=== PATIENT | female | born 1950 | race Two or more races ===

== ENCOUNTER 2025-02-22 14:54 | Inpatient (IN) | payer OTHER ==
[~2025-02-22] VITALS: Ht 162.6 cm; Wt 76.3 kg
[2025-02-22] VITALS (8 sets, daily range): BP systolic 149–192; BP diastolic 76–96; PULSE 42–89; RESP 14–16; TEMP 97.9; O2SAT 93–100
--- NOTE | 2025-02-22 15:09 | ED.PDOC ---
History of Present Illness HPI Comments 74-year-old female brought in by EMS presents with a chief complaint of symptomatic bradycardia. Patient is experiencing dizziness, weakness, and bradycardia. Patient is not on Beta Blockers. Patient was at the clinic around the corner and her HR was 42 with a BP of 190/101. Patients blood sugar was 62. Patients EKG shows a complete heart block. 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 History: Denies all WATER PUMP INSTALLER Hx Family History Family History: Reviewed,noncontributory to illness Social History Smoker: Non-Smoker Alcohol: Denies ETOH Use Drugs: Denies Drug Use Lives In: Home Constitutional: reports: weakness; denies: chills, diaphoresis, fatigue, fever, malaise, sweats, others EENTM: denies: blurred vision, double vision, ear bleeding, ear discharge, ear drainage, ear pain, ear ringing, eye pain, eye redness, hearing loss, mouth pain, mouth swelling, nasal discharge, nose bleeding, nose congestion, nose pain, photophobia, tearing, throat pain, throat swelling, voice changes, others Respiratory: reports: SOB at rest; denies: cough, hemoptysis, orthopnea, shortness of breath, SOB with excertion, stridor, wheezing, others Cardiovascular: reports: dizzy spells; denies: chest pain, diaphoresis, Dyspnea on exertion, edema, irregular heart beat, left arm pain, lightheadedness, palpitations, PND, syncope, others Gastrointestinal: denies: abdomen distended, abdominal pain, blood streaked bowels, constipated, diarrhea, dysphagia, difficulty swallowing, hematemesis, melena, nausea, poor appetite, poor fluid intake, rectal bleeding, rectal pain, vomiting, others Genitourinary: denies: abnormal vagina bleeding, burning, dyspareunia, dysuria, flank pain, frequency, hematuria, incontinence, pain, , vagina discha rge, urgency, others Neurological: denies: dizziness, fainting, headache, left sided numbness, left sided weakness, numbness, paresthesia, pre-existing deficit, right sided numbness, right sided weakness, seizure, speech problems, tingling, tremors, weakness, others Musculoskeletal: denies: back pain, gout, joint pain, joint swelling, muscle pain, muscle stiffness, neck pain, others Integumetry: denies: bruises, change in color, change in hair/nails, dryness, laceration, lesions, lumps, rash, wounds, others Allergic/Immunocompromised: denies: Difficulty Healing, Frequent Infections, Hives, Itching, others Hematologic/Lymphatic: denies: anemia, blood clots, easy bleeding, easy bruising, swollen glands, others Endocrine: denies: excessive hunger, excessive sweating, excessive thirst, excessive urination, flushing, intolerance to cold, intolerance to heat, unexplained weight gain, unexplained weight loss, others Psychiatric: denies: anxiety, bipolar disorder, depression, hopeless, panic disorder, schizophrenia, sleepless, suicidal, others All Other Systems: Reviewed and Negative Physical Exam General Appearance: Moderate Distress HEENT: Normal ENT Inspection, Pharynx Normal, TMs Normal Neck: Full Range of Motion, Non-Tender, Normal, Normal Inspection Respiratory: Chest Non-Tender, Lungs Clear, No Accessory Muscle Use, No Respiratory Distress, Normal Breath Sounds Cardiovascular: Bradycardia, No Edema, No JVD, No Murmur, No Gallop Breast Exam: Deferred Gastrointestinal: No Organomegaly, Non Tender, No Pulsatile Mass, Normal Bowel Sounds, Soft Genitalia: Deferred Pelvic: Deferred Rectal: Deferred Extremities: No calf tenderness, Normal capillary refill, No pedal edema Musculoskeletal : Apperance: Normal Neurologic: Alert, email producer II-XII nml as Tested, Motor Weakness, Normal Affect, Normal Mood, No Sensory Deficits Cerebellar Function: Normal Reflexes: Normal Skin: Dry, Normal Color, Warm Lymphatic: No Adenopathy Was a procedure done? Was a procedure done?: No EKG EKG : Pulse Rate (adult): 46 Allred: Normal Block: 3 ST: Nonsp (Complete heart block) Differential Dx Considerations may include: Generalized weakness, electrolyte imbalance, complete heart block, VA X-Ray, Labs, Meds, VS Vital Signs Date Time Temp Pulse Resp B/P (MAP) Pulse Ox O2 Delivery O2 Flow Rate FiO2 02/22/25 16:09 46 02/22/25 15:17 42 16 100 Room Air* 0 21 02/22/25 15:17 98.2 42 16 175/ (115) 100 98.2 02/22/25 15:17 98.2 42 16 175/86 (115) 100 98.2 02/22/25 15:00 47 Lab Test 02/22/25 15:37 Range/Units White Blood Count 7.3 4.4-10.8 10^3/uL Red Blood Count 4.59 4.0-5.20 10^6/uL Hemoglobin 13.8 12.2-16.2 g/dL Hematocrit 40.7 36.0-46.0 % Mean Corpuscular Volume 88.7 80.0-100.0 fL Mean Corpuscular Hemoglobin 30.0 28.0-32.0 pg Mean Corpuscular Hemoglobin Concent 33.9 32.0-36.0 g/dL Red Cell Distribution Width 12.8 11.8-14.3 % Platelet Count 230 140-450 10^3/uL Mean Platelet Volume 9.1 6.9-10.8 fL Neutrophils (%) (Auto) 44.7 37.0-80.0 % Lymphocytes (%) (Auto) 44.7 10.0-50.0 % Monocytes (%) (Auto) 8.3 0.0-12.0 % Eosinophils (%) (Auto) 1.4 0.0-7.0 % Basophils (%) (Auto) 0.9 0.0-2.0 % Neutrophils # (Auto) 3.3 1.6-8.6 10 ^3/uL Lymphocytes # (Auto) 3.3 0.4-5.4 10 ^3/uL Monocytes # (Auto) 0.6 0-1.3 10 ^3/uL Eosinophils # (Auto) 0.1 0-0.8 10 ^3/uL Basophils # (Auto) 0.1 0-0.2 10 ^3/uL Nucleated Red Blood Cells 0.0 % Prothrombin Time 11.3 9.3-11.8 sec Prothrombin Time INR 1.07 0.9-1.15 Activated Partial Thromboplast Time 25.1 24.5-34.5 SEC Sodium Level 144 136-145 mmol/L Potassium Level 3.6 3.5-5.1 mmol/L Chloride Level 110 H 98-107 mmol/L Carbon Dioxide Level 25 20-31 mmol/L Anion Gap 9 5-15 Blood Urea Nitrogen 13 9-23 mg/dL Creatinine 0.93 0.550-1.02 mg/dL Glomerular Filtration Rate Calc 65 >90 mL/min BUN/Creatinine Ratio 14.0 10.0-20.0 Serum Glucose 118 H 74-106 mg/dL Calcium Level 10.1 8.7-10.4 mg/dL Magnesium Level 2.2 1.6-2.6 mg/dL Troponin I High Sensitivity 5 </=34 ng/L B-Type Natriuretic Peptide 57.53 0-100 pg/mL Thyroid Stimulating Hormone (TSH) 2.48 0.55-4.78 uIU/mL IV Hep-Lock was established. After seemed to EKG we did send it to Dr. Su who is the onion farmer on-call We are going to keep the patient NPO Gabby Caal HAUL DRIVER came down and did the patient's history and physical. At this time, the patient understands and agrees with the management. We did repeat another EKG which indicates again a complete heart block The BNP is within normal range The CBC and chemistry panel are within normal range The patient's troponin level is negative At this time, the patient will be taken to the laborer petroleum refinery for the new pacemaker The chest x-ray is negative Images Reviewed?: Images reviewed and evaluated by me Time of 1ST Reevaluation: 15:28 Reevaluation 1ST: Unchanged Patient Education/Counseling: Diagnosis, Treatment, Prognosis Family Education/Counseling: No Family Present Departure 1 Departure Time of Disposition: 16:41 Impression: Primary Impression: Complete heart block Additional Impression: Dizziness Disposition: 09 ADMITTED INPATIENT Admit to: ICU Condition: Fair Critical Care Note Critical Care Time?: Yes (55 min-critical care time only) Stability Stability form required: Yes Unstable for transfer: ICU, CCU, PCU, SLAVA (Intensive VS monitoring), ED Physician Assesment (Clinical assesment) Heart Score Heart Score: Heart Score Response (Comments) Value History Highly Suspicious 2 EKG Repolarization Disturb 1 Age >65 2 Risk Factors >3 or Hx ASHD 2 Troponin Normal limit 0 Total 7 I personally scribed for CAMILA NEGRETE MD ([email or web address]) on 02/22/25 at 15:09. Electronically submitted by Bienvenido Sharma ([email or web address]). CAMILA NEGRETE MD February 22, 2025 15:09
--- NOTE | 2025-02-22 15:54 | DVH ---
INDICATION: weakness and sob TECHNIQUE: Frontal view of the chest. COMPARISON: None FINDINGS: . The heart and mediastinal contours are grossly unremarkable. There is no evidence of pleural disea se. The lungs are clear. The bony structures of the chest are intact without fracture. IMPRESSION: 1. No evidence of acute disease.
--- NOTE | 2025-02-22 15:58 | DVHINCON2 ---
Date Seen: February 22, 2025 Referring Physician MD Denisa Reason for Consultation Complete heart block History of Present Illness This is a 74-year-old female who presented to the emergency room via EMS with a chief complaint of generalized weakness since this morning. The patient complains of progressive generalized weakness prompting her to seek further medical attention and attending a local urgent care clinic and found to be bradycardic with subsequent EMS transportation to the emergency room. EN route to the hospital she was found with a blood sugar level of 62 mg/dL for which she was medicated with dextrose as well as a reported HR in the 40sbpm. Upon arrival to the emergency room she underwent a 12 lead electrocardiogram revealing a complete atrioventricular block. She presented with a home med list excluding any AV pj blocking agents. She also presented with a blood pressure log revealing a heart rate in the 40s since yesterday afternoon. significant medical history includes hypertension on lisinopril, osteoporosis with a history of multiple fractures, asthma, bilateral cataracts, and chronic lower back pain. Past Medical History Past medical history reviewed. No other significant than mentioned above. Past Surgical History C-sections x2 Hysterectomy Cholecystectomy Right foot hammertoe x4 Family History Family history reviewed. Social History Denies the use of illicit drugs, alcohol, or tobacco use. Home Meds Home medications reviewed. Review of Systems Constitutional: generalized weakness Ears, Nose, & Throat: No symptom reported Eyes: No symptom reported Neurological: No symptoms reported Pulmonary/Respiratory: No symptom reported Cardiovascular: No symptom reported Gastrointestinal: No symptom reported Genitourinary: No symptom reported Musculoskeletal: No symptom reported Skin: No symptom reported Psychiatric: No symptom reported Endocrine: No symptom reported Hemotologic/Lymphatic: No symptom reported Vital Signs Vital Signs Date Time Temp Pulse Resp B/P (MAP) Pulse Ox O2 Delivery O2 Flow Rate FiO2 02/22/25 15:17 42 16 100 Room Air* 0 21 02/22/25 15:17 98.2 175/86 (115) 98.2 Physical Exam General Appearance: Cooperative. Well developed. Well nourished. In no acute distress Head Exam: Normal inspection Neck Exam: Normal inspection. Non-tender. Normal alignment Pulmonary/Respiratory: Chest non-tender. Clear bilateral breath sounds Cardiovascular/Chest: Regular rate and rhythm. S1, S2. Complete heart block. No murmurs. No JVD. Peripheral Pulses: 2+ Radial (R). 2+ Radial (L). 2+ Pedal (R). 2+ Pedal (L) Abdominal Exam: Normal bowel sounds. Soft. Nontender. No hepatospenomegaly. No masses Ankle Exam: Negative ankle edema Lower extremities: Negative lower extremity edema Neuro/Mental Status: A&O x4. Coherent Thoughts/Psych: Normal thought pattern. Appropriate mood and affect. Good judgement and insight Appearance: In no acute distress Skin Exam: Normal inspection. Normal color. Warm. Dry Assessment Complete heart block Rule out structural heart disease Acute hypoglycemia Hypertension Osteoporosis Asthma Plan/Recommendation (Dr. Su) Case discussed with Dr. Su. Scheduled for emergent permanent pacemaker implantation first availability. All risks and benefits of the procedure were discussed with the patient who agrees to proceed with intervention. All questions answered. We will also obtain a transthoracic echocardiogram to rule out structural heart disease. Blood work pending at this time. Monitor ECG changes closely and notify. Rest of plan per clinical course. Thank you for allowing us to participate in this patient's care. Please call if you have any questions or concerns. Critical care time: 45 min. This medical document was created using an electronic medical record system with voice recognition software and computerized dictation system. Although this document has been carefully reviewed, there might still be some phonetic and typographical errors. Occasional wrong-word or ``sound-alike substitutions may have occurred due to the inherent limitations of voice recognition software. These areas are purely typographical due to imperfections of the software programs and do not reflect any compromise in the patient's medical care. Please read the chart carefully and recognize, using context, where these substitutions have occurred. Plan discussed with: Patient, Other NYHA Physical activity limitations: NA Date of Service: February 22, 2025 Billing Provider: LAURIE PICHARDO Cardiology Common Codes: [id number] CARE 30-74 MIN LAURIE PICHARDO February 22, 2025 15:58
[2025-02-22 16:09] LABS: Basophils # (auto) 0.1 10 ^3/uL (0-0.2); Basophils % (auto) 0.9 % (0.0-2.0); Eosinophils # (auto) 0.1 10 ^3/uL (0-0.8); Eosinophils % (auto) 1.4 % (0.0-7.0); Hematocrit 40.7 % (36.0-46.0); Hemoglobin 13.8 g/dL (12.2-16.2); Lymphocytes # (auto) 3.3 10 ^3/uL (0.4-5.4); Lymphocytes % (auto) 44.7 % (10.0-50.0); Mean Corpuscular Hgb Conc. 33.9 g/dL (32.0-36.0); Mean Corpuscular Volume 88.7 fL (80.0-100.0); Monocytes # (auto) 0.6 10 ^3/uL (0-1.3); Monocytes % (auto) 8.3 % (0.0-12.0); Neutrophils # (auto) 3.3 10 ^3/uL (1.6-8.6); Neutrophils % (auto) 44.7 % (37.0-80.0); Platelet Count (auto) 230 10^3/uL (140-450); Red Blood Cells 4.59 10^6/uL (4.0-5.20); Red Cell Distribution Width 12.8 % (11.8-14.3); White Blood Cell 7.3 10^3/uL (4.4-10.8)
[2025-02-22 16:20] LABS: Anion Gap 9 (5-15); Carbon Dioxide 25 mmol/L (20-31); Potassium 3.6 mmol/L (3.5-5.1); Sodium 144 mmol/L (136-145)
[2025-02-22 16:21] LABS: Calcium 10.1 mg/dL (8.7-10.4)
[2025-02-22 16:22] LABS: Chloride 110 mmol/L (98-107)
[2025-02-22 16:26] LABS: Blood Urea Nitrogen 13 mg/dL (9-23); Magnesium 2.2 mg/dL (1.6-2.6)
[2025-02-22 16:29] LABS: Glucose 118 mg/dL (74-106)
[2025-02-22 16:30] LABS: INR 1.07 (0.9-1.15); Partial Thromboplastin Time 25.1 SEC (24.5-34.5); Prothrombin Time 11.3 sec (9.3-11.8)
--- NOTE | 2025-02-22 18:59 | ECG ---
[facility] Test Date: 2025-02-22 Test Time: 15:00:37 Pat Name: ELSA ASIF Department: ED Room: 0248T Gender: F Hat And Cap Opener: elmer : 1950 Requested By: CAMILA NEGRETE Order Number: [id number] Reading MD: Jamie Su Measurements Intervals [place] Rate: 47 P: 0 OR: 0 QRS: -61 QRSD: 114 T: 60 QT: 553 QTc: 489 Interpretive Statements AV block, complete (third degree) Incomplete right bundle branch block Inferior infarct, old Electronically Signed On 02-26-2025 22:06:09 PDT by Jamie Su Please click the below link to view image of tracing.
--- NOTE | 2025-02-22 18:59 | ECG ---
[facility] Test Date: 2025-02-22 Test Time: 16:09:02 Pat Name: ELSA ASIF Department: ED Room: 0248T Gender: F Direct Sales Representative: elmer : 1950 Requested By: CAMILA NEGRETE Order Number: [id number] Reading MD: Jamie Su Measurements Intervals [place] Rate: 46 P: 81 WI: 0 QRS: -65 QRSD: 120 T: 64 QT: 510 QTc: 447 Interpretive Statements AV block, complete (third degree) Ventricular premature complex IVCD, consider atypical RBBB Inferior infarct, old Electronically Signed On 02-26-2025 22:06:30 PDT by Jamie Su Please click the below link to view image of tracing.
[2025-02-22] MEDS: fentaNYL CITRATE 100 MCG/2 ML VL ONE ×2 (19:05→20:06)
[2025-02-22] MEDS: VANCOMYCIN HCL 1000 MG VL ONE (19:05)
[2025-02-22] MEDS: LIDOCAINE 2%HCL (LOCAL ANESTH.) INJ 20ML MDV ONE ×2 (19:06→19:39)
[2025-02-22] MEDS: MIDAZOLAM HCL 2MG/2ML 2ml VIAL (1mg/ml) ONE ×2 (19:06→20:06)
[2025-02-22] MEDS: VANCOMYCIN 1GM/200ML PM 200 ML IV ONE (19:06)
--- NOTE | 2025-02-22 21:31 | DVHOP2 ---
Operative Report - 2 Report Details Date: 02/22/25 Preop Diagnosis: Complete heart block Postop Diagnosis: Successful placement of permanent pacemaker Surgeon: Cody Su MD Anesthesiologist: Conscious sedation Anesthesia: Mac, Local Consent: The patient was informed of the risks and benefits of the procedure. These include but are not limited to complications of anesthesia, postoperative infection, incomplete relief of symptoms, recurrence of symptoms, damage to blood vessels, nerves and tendons, deep venous thrombosis, pulmonary embolism and possible need for repeat surgery in the future. Complications: No complications Estimated Blood Loss: 5 cc Indications for Surgery: Complete heart block Name of Procedure Performed Permanent pacemaker implantation Procedure Details Procedure Details: Prior full informed consent obtained the patient was prepped and draped in usual fashion incision over the left pectoral area after a venogram performed. Dissection planes with electrocautery and blunt dissection was performed of the left pectoral muscle and a pocket formed under the pectoral fascia. We then accessed the subclavian vein with a cook needle and place taken guidewires. Peel-away sheath was then placed. Active fixation electrodes into the right ventricular apex and right atrium were placed under fluoroscopic guidance. Adequate capture and sensitivity thresholds were obtained. These were sutured with 0 Ethibond. The pocket was flushed with antibiotic solution and a Ray-Nathalie with antibiotic solution was placed during the insertion of the leads. The Ray-Nathalie was then removed. The leads were connected to a generator after the pocket was flushed with antibiotic solution and the pocket was closed with 4.0 Vicryl. We closed the skin with 4-0 Monocryl and Dermabond. Patient tolerated the procedure well there were no complications. The right ventricular lead is a Medtronic model number 5076-5 two. 52 cm in length. Serial number [id number] The atrial lead is a model number 5076-45, serial number [id number], ALSO BY [employer]. THE R-WAVE WAS 2 MV WITH A PACING IMPEDANCE OF 608 OHMS. THE THRESHOLD WAS 1 VOLT AT 0.4 MILLISECONDS THE RIGHT VENTRICULAR R-WAVE WAS AT FOUR. PACING IMPEDANCE OF 567 AT 0.5 VOLTS AND 0.4 MILLISECONDS. THE PACEMAKER IMPLANTED WAS A [employer] MODEL NUMBER [id number] SERIAL NUMBER [id number] G pacemaker settings were as follows. Pacing mode is DDD. Mode switch on. Lower rate 60 upper rate 130. Tracking rate 130. , atrial amplitude at 3.5 volts with a pulse width of 0.4 milliseconds a sensitivity of 0.3 mV bipolar configuration in both sensing and pacing. Parameters for the right ventricle are as follows: Amplitude 3.5 volts with a pulse width of 0.4 milliseconds, a sensitivity of 0.9 mV, bipolar configuration in both sensing and pacing. A chest x-ray and an EKG were ordered for evaluation of placements. patient tolerated the procedure well there were no complications. Impression: Successful placement of dual-chamber permanent pacemaker for complete AV block. Recommendations: Risk factor modification. Checking thresholds within 24 hours. Condition Good Disposition Still a Patient Date of Service: February 22, 2025 Billing Provider: CODY SU Sr., MD Cardiology Common Codes: [id number] INP/OBS CARE (High) Card. Pacer Implants/Gen [id number] DUAL LEAD PACER CODY SU Sr., MD February 22, 2025 21:31
--- NOTE | 2025-02-22 21:53 | DVH ---
CHEST RADIOGRAPH Indication: S/P PACEMAKER Technique: Single frontal view of the chest was obtained Comparison: XY CHEST PORTABLE on DOS: 02/22/25 FINDINGS: Lines and Tubes: Dual-chamber pacemaker in place with pulse generator over the left chest Lungs: No focal consolidation. Pleura: No effusion. No pneumothorax. Cardiomediastinal contours: Unremarkable Bones: No acute osseous abnormality. IMPRESSION: 1. Dual-chamber pacemaker in place with pulse generator over the left chest. 2. No pneumothorax on the left. 3. No acute cardiopulmonary disease.
[2025-02-22] MEDS: HYDROmorphone HCL 2 MG/ML VL/or syr IV ONE (22:33)
[2025-02-23] VITALS (7 sets, daily range): BP systolic 119–156; BP diastolic 75–89; PULSE 54–90; RESP 16–19; TEMP 97.7–98.4; O2SAT 96–100
[2025-02-23] MEDS ORDERED: MORPHINE SULFATE INJ 2 MG/ml SYRG IV PRN
[2025-02-23] MEDS ORDERED: NITROGLYCERIN 0.4 MG SL TAB SL PRN
[2025-02-23] MEDS: ONDANSETRON HCL 4 MG/2 ML VIAL IV PRN (01:21)
[2025-02-23] MEDS ORDERED: NAP500T PO (01:49)
[2025-02-23] MEDS ORDERED: MONT-8 PO (01:49)
[2025-02-23] MEDS ORDERED: CETI10CA PO (01:49)
[2025-02-23] MEDS ORDERED: ALBUAER3 IN (01:49)
[2025-02-23] MEDS ORDERED: ALBU0.084 IN (01:49)
[2025-02-23] MEDS ORDERED: FLUT1SPR5 (01:49)
[2025-02-23] MEDS ORDERED: GUAI600T78 PO (01:49)
[2025-02-23] MEDS ORDERED: IPRA0.03 (01:49)
[2025-02-23] MEDS ORDERED: CYCL-837 PO (01:49)
[2025-02-23] MEDS ORDERED: OMEP20TA PO (01:49)
[2025-02-23] MEDS ORDERED: BUDE1AER6 IN (01:49)
[2025-02-23] MEDS ORDERED: FAMO20TA10 PO (01:49)
[2025-02-23] MEDS ORDERED: LISI30TA8 PO (01:49)
[2025-02-23] MEDS ORDERED: ALEN70TA74 PO (01:49)
--- NOTE | 2025-02-23 04:52 | DVHHP2 ---
History of Present Illness Reason for Visit: Dizziness History of Present Illness 74-year-old female presents for evaluation of dizziness. Patient initially presented to outside clinic with complaints of dizziness and generalized weakness. Patient was noted to have a heart rate in the 40s and elevated blood pressure. Patient was transferred for further evaluation. Patient was found to have a complete heart block and was taken for a pacemaker insertion. Patient is currently alert and oriented. No chest pain or shortness for breath. Past Medical History Hypertension, asthma, thyroid Past Surgical History , pacemaker Family History Noncontributory Smoke: No ALCOHOL: none Drugs: None Lives: with Family Review of Systems Review of Systems Review of systems are currently negative otherwise addressed in HPI. Allergies: Coded Allergies: Latex (Verified Allergy, Unknown, 02/22/25) Medications Current Medications Medications Dose Ordered Sig/Teri Route Start Time Stop Time Status Last Admin Dose Admin Nitroglycerin 0.4 mg Q5MINP PRN SL 02/23/25 00:00 Morphine Sulfate 2 mg Q30M PRN IV 02/23/25 00:00 Lisinopril 20 mg DAILY PO 02/23/25 10:00 Acetaminophen/ Hydrocodone Bitart 1 tab Q4HP PRN PO 02/23/25 00:15 Ondansetron HCl 4 mg Q4HP PRN IV 02/23/25 00:15 02/23/25 01:21 4 MG Acetaminophen 650 mg Q6HP PRN PO 02/23/25 00:15 Exam Vital Signs Vital Signs Date Time Temp Pulse Resp B/P (MAP) Pulse Ox O2 Delivery O2 Flow Rate FiO2 02/23/25 01:00 98.4 82 18 149/85 (106) 99 98.4 02/22/25 15:17 Room Air* 0 21 Exam Gen: 74-year-old female in no apparent distress. Skin: Warm, dry, normal color and texture, no rash. HEENT: Normocephalic atraumatic, mucous membranes moist and pink. Neck: Cervical and supraclavicular nodes normal without enlargement, trachea is midline, thyroid gland is normal without masses. Pulmonary: Clear to auscultation and percussion bilaterally. Cardiac: Regular rate and rhythm. No murmur Abdomen: Soft, nontender, nondistended, bowel sounds present all 4 quadrants, no guarding, no rigidity, no organomegaly. Extremities: No cyanosis, clubbing, no edema Neuro: Cranial nerves II through XII grossly intact, normal affect and speech, no focal motor deficits. Labs/Xrays Labs Test 02/22/25 16:23 02/22/25 15:37 Range/Units Troponin I High Sensitivity 5 </=34 ng/L White Blood Count 7.3 4.4-10.8 10^3/uL Red Blood Count 4.59 4.0-5.20 10^6/uL Hemoglobin 13.8 12.2-16.2 g/dL Hematocrit 40.7 36.0-46.0 % Mean Corpuscular Volume 88.7 80.0-100.0 fL ORDERING PHYSICIAN: CODY ORELLANA Sr., MD PROCEDURE(s): CXRP - CHEST PORTABLE REASON: S/P PACEMAKER ORDER NUMBER(s): [id number], ACCESSION NUMBER(s): [id number] CHEST RADIOGRAPH Indication: S/P PACEMAKER Technique: Single frontal view of the chest was obtained Comparison: XY CHEST PORTABLE on DOS: 02/22/25 FINDINGS: Lines and Tubes: Dual-chamber pacemaker in place with pulse generator over the left chest Lungs: No focal consolidation. Pleura: No effusion. No pneumothorax. Cardiomediastinal contours: Unremarkable Bones: No acute osseous abnormality. IMPRESSION: 1. Dual-chamber pacemaker in place with pulse generator over the left chest. 2. No pneumothorax on the left. 3. No acute cardiopulmonary disease. Mean Co rpuscular Hemoglobin 30.0 28.0-32.0 pg Mean Corpuscular Hemoglobin Concent 33.9 32.0-36.0 g/dL Red Cell Distribution Width 12.8 11.8-14.3 % Platelet Count 230 140-450 10^3/uL Mean Platelet Volume 9.1 6.9-10.8 fL Neutrophils (%) (Auto) 44.7 37.0-80.0 % Lymphocytes (%) (Auto) 44.7 10.0-50.0 % Monocytes (%) (Auto) 8.3 0.0-12.0 % Eosinophils (%) (Auto) 1.4 0.0-7.0 % Basophils (%) (Auto) 0.9 0.0-2.0 % Neutrophils # (Auto) 3.3 1.6-8.6 10 ^3/uL Lymphocytes # (Auto) 3.3 0.4-5.4 10 ^3/uL Monocytes # (Auto) 0.6 0-1.3 10 ^3/uL Eosinophils # (Auto) 0.1 0-0.8 10 ^3/uL Basophils # (Auto) 0.1 0-0.2 10 ^3/uL Nucleated Red Blood Cells 0.0 % Prothrombin Time 11.3 9.3-11.8 sec Prothrombin Time INR 1.07 0.9-1.15 Activated Partial Thromboplast Time 25.1 24.5-34.5 SEC Sodium Level 144 136-145 mmol/L Potassium Level 3.6 3.5-5.1 mmol/L Chloride Level 110 H 98-107 mmol/L Carbon Dioxide Level 25 20-31 mmol/L Anion Gap 9 5-15 Blood Urea Nitrogen 13 9-23 mg/dL Creatinine 0.93 0.550-1.02 mg/dL Glomerular Filtration Rate Calc 65 >90 mL/min BUN/Creatinine Ratio 14.0 10.0-20.0 Serum Glucose 118 H 74-106 mg/dL Calcium Level 10.1 8.7-10.4 mg/dL Magnesium Level 2.2 1.6-2.6 mg/dL B-Type Natriuretic Peptide 57.53 0-100 pg/mL Thyroid Stimulating Hormone (TSH) 2.48 0.55-4.78 uIU/mL Assessment/Plan Assessment/Plan Assessment Complete heart block Status post pacemaker Hypertension Plan Admit the patient to telemetry to the hospitalist Resume home medications Continue treatment per orders. Plan discussed with: Patient My Orders Orders - CHUCK SALDAÑA Procedure Category Date Status Time Admit ADMIT 02/22/25 Transmitted 23:46 Nitroglycerin PHA 02/23/25 In Process Sublingual (Ntrostat 00:00 Morphine Sulfate PHA 02/23/25 In Process Injection 00:00 Stat Ekg For Chest JON 02/22/25 In Process Pain 23:46 Notify Of Changes JON 02/22/25 In Process From Base 23:46 Field Support Technician For JON 02/22/25 In Process 24 Hours 23:46 Emergency Dysrhythmia JON 02/22/25 In Process Protocol 23:46 Rhythm Strips Once JON 02/22/25 In Process Every Shift 23:46 Oxygen By Nasal RT 02/22/25 Transmitted Cannula 23:46 Lisinopril Tablet PHA 02/23/25 In Process (Zestril Tablet) 10:00 Basic Metabolic Panel LAB 02/24/25 Verified 04:00 Hydrocodone-Acet PHA 02/23/25 In Process 325mg Tab (Racine 00:15 Ondansetron Hcl PHA 02/23/25 In Process (Zofran) 00:15 Echo 2d Mode Cardiac US 02/23/25 Logged DOP 00:12 Condition: Fair JON 02/23/25 In Process 00:12 Acetaminophen Tablet PHA 02/23/25 In Process (Tylenol Tablet) 00:15 Bedrest With Bathroom JON 02/23/25 In Process Privileg 00:12 Date of Service: February 23, 2025 Billing Provider: CHUCK SALDAÑA Common Visit Codes: [id number] INP/OBS CARE (HIGH) CHUCK SALDAÑA February 23, 2025 04:52
[2025-02-23] MEDS: HYDROcodone-ACET 5/325MG TAB PO PRN (05:20)
--- NOTE | 2025-02-23 09:57 | DVH ---
CHEST RADIOGRAPH Indication: assess pacemaker placement Technique: Single frontal view of the chest was obtained Comparison: XY CHEST PORTABLE on DOS: 02/22/25, XY CHEST PORTABLE on DOS: 02/22/25 FINDINGS: Lines and Tubes: Left-sided pacer maker. Lungs: No focal consolidation. Pleura: No effusion. No pneumothorax. Cardiomediastinal contours: Unremarkable Bones: No acute osseous abnormality. IMPRESSION: No acute cardiopulmonary disease.
[2025-02-23] MEDS: LISINOPRIL 20 MG TAB PO SCH (10:34)
--- NOTE | 2025-02-23 14:41 | DVHSR ---
APPROVED REPORT EXAM: Two-dimensional and M-mode echocardiogram with Doppler and color Doppler. Blood Pressure: 156/89 mmHg INDICATION EF Surgery/Intervention Pacemaker: RISK FACTORS Height: 64, Weight: 168 DIMENSIONS LVDd (3.8-5.7cm)LA (2D)3.9 (1.9-4.0cm)Aortic Root (2.0-3.7cm) EF (%) 72.0 (55-70%)Rt. Atrium3.8 (1.9-4.0cm)Asc. Aorta cm Mitral Valve MitralMitral Stenosis E wave0.83m/sMV Mean GR.mmHg A wave1.38m/sMV Peak GR.70mmHg E/A ratio0.62D MVAcm2 DECEL [id number] 1/2 Qgru50io IVRTmsDop MVA2.51cm2 Aortic Valve Aortic ValveAortic Stenosis V11.26m/Yogesh Mean GR.6mmHg V21.84m/Yogesh Peak GR.14mmHg AI P 1/2 Icer711.51ms Tricuspid Valve TR Velocity2.96m/s [id number] Other Information Technically limited study due to body habitus, patient position and patient sensitve to touch due to recent pacemaker insert. Conclusion Technically good study. Sinus rhythm. Limited views. Left atrial enlargement. Concentric LVH. Moderate mitral annular calcification. Thickening and calcification of the lateral aspect of the lisa ral annulus and posterior mitral leaflet. The aortic tricuspid and pulmonic or structurally normal. Left ventricular function is preserved at 60% with normal RV function. Mild mitral insufficiency. Moderate tricuspid regurgitation. No pericardial effusion masses or vegetations. Pacing lead noted in RV.
--- NOTE | 2025-02-23 14:57 | DVHPN2 ---
Consult Progress Note Subjective Other Systems: Patient is in a paced rhythm on director of cardiac rehabilitation Denies any cardiac symptoms at time of assessment Objective vital signs Vital Sign Date Time Temp Pulse Resp B/P (MAP) Pulse Ox O2 Delivery O2 Flow Rate FiO2 02/23/25 10:34 119/83 02/23/25 09:00 98.0 79 18 99 98.0 02/23/25 08:00 Room Air* 0 21 Total Intake and Output 02/22/25 02/22/25 02/23/25 15:00 23:00 07:00 Intake Total 0 ml Balance 0 ml medications Current Medications Medications Dose Ordered Sig/Teri Route Start Time Stop Time Status Last Admin Dose Admin Nitroglycerin 0.4 mg Q5MINP PRN SL 02/23/25 00:00 Morphine Sulfate 2 mg Q30M PRN IV 02/23/25 00:00 Lisinopril 20 mg DAILY PO 02/23/25 10:00 02/23/25 10:34 20 MG Acetaminophen/ Hydrocodone Bitart 1 tab Q4HP PRN PO 02/23/25 00:15 02/23/25 13:11 1 TAB Ondansetron HCl 4 mg Q4HP PRN IV 02/23/25 00:15 02/23/25 13:05 4 MG Acetaminophen 650 mg Q6HP PRN PO 02/23/25 00:15 Loratadine 10 mg DAILY PO 02/24/25 10:00 UNV Fluticasone Propionate 50 mcg Q12HR EACHNOSTRI 02/23/25 22:00 UNV Examination: GENERAL:Normal, LUNGS:Normal, CVS:Normal, NEURO:Normal laboratory and microbiology Laboratory Tests 02/22/25 15:37 Test 02/22/25 15:37 Range/Units Serum Glucose 118 H 74-106 mg/dL Problem List/Assessment/Plan Problem List/Assessment/Plan Complete heart block, s/p dual-chamber permanent pacemaker implantation (Medtronic) Moderate tricuspid valve regurgitation Acute hypoglycemia, resolved Hypertension Osteoporosis Asthma Plan/Recommendation (Dr. Su): The patient who came in with a complete heart block underwent a successful placement of a permanent pacemaker (Medtronic) on 02/22/2025. A pacemaker interrogation done on 02/23/2025 was reviewed by inventory planner , and shows no malfunction. Dressing site to left upper chest is clean, dry, and intact, no signs of hematoma or active bleed. A transthoracic echocardiogram reveals EF at 60%. There is no further inpatient cardiac workup indicated at this time. The patient has been scheduled to follow up in the outpatient cardiology clinic as follows: 03/01/25 at 11am, 03/07/25 at 2:45pm and 03/16/25 at 11:00am. Thank you for allowing us to care for this patient. Please call with any questions or concerns. This medical document was created using an electronic medical record system with voice recognition software and computerized dictation system. Although this document has been carefully reviewed, there might still be some phonetic and typographical errors. Occasional wrong-word or ``sound-alike substitutions may have occurred due to the inherent limitations of voice recognition software. These areas are purely typographical due to imperfections of the software programs and do not reflect any compromise in the patient's medical care. Please read the chart carefully and recognize, using context, where these substitutions have occurred. Plan discussed with: Patient Date of Service: February 23, 2025 Billing Provider: KAREN MCNEILL Common Visit Codes: [id number] INP/OBS CARE(HIGH) KAREN MCNEILL February 23, 2025 14:57
--- NOTE | 2025-02-23 15:38 | DVHDS2 ---
Discharge Summary Date of Admission February 22, 2025 at 23:46 Date of Discharge: February 23, 2025 Labs/Diagnostic Data: Laboratory Results Test 02/22/25 16:23 02/22/25 15:37 Troponin I High Sensitivity 5 ng/L (</=34) White Blood Count 7.3 10^3/uL (4.4-10.8) Red Blood Count 4.59 10^6/uL (4.0-5.20) Hemoglobin 13.8 g/dL (12.2-16.2) Hematocrit 40.7 % (36.0-46.0) Mean Corpuscular Volume 88.7 fL (80.0-100.0) Mean Corpuscular Hemoglobin 30.0 pg (28.0-32.0) Mean Corpuscular Hemoglobin Concent 33.9 g/dL (32.0-36.0) Red Cell Distribution Width 12.8 % (11.8-14.3) Platelet Count 230 10^3/uL (140-450) Mean Platelet Volume 9.1 fL (6.9-10.8) Neutrophils (%) (Auto) 44.7 % (37.0-80.0) Lymphocytes (%) (Auto) 44.7 % (10.0-50.0) Monocytes (%) (Auto) 8.3 % (0.0-12.0) Eosinophils (%) (Auto) 1.4 % (0.0-7.0) Basophils (%) (Auto) 0.9 % (0.0-2.0) Neutrophils # (Auto) 3.3 10 ^3/uL (1.6-8.6) Lymphocytes # (Auto) 3.3 10 ^3/uL (0.4-5.4) Monocytes # (Auto) 0.6 10 ^3/uL (0-1.3) Eosinophils # (Auto) 0.1 10 ^3/uL (0-0.8) Basophils # (Auto) 0.1 10 ^3/uL (0-0.2) Nucleated Red Blood Cells 0.0 % Prothrombin Time 11.3 sec (9.3-11.8) Prothrombin Time INR 1.07 (0.9-1.15) Activated Partial Thromboplast Time 25.1 SEC (24.5-34.5) Sodium Level 144 mmol/L (136-145) Potassium Level 3.6 mmol/L (3.5-5.1) Chloride Level 110 mmol/L (98-107) Carbon Dioxide Level 25 mmol/L (20-31) Anion Gap 9 (5-15) Blood Urea Nitrogen 13 mg/dL (9-23) Creatinine 0.93 mg/dL (0.550-1.02) Glomerular Filtration Rate Calc 65 mL/min (>90) BUN/Creatinine Ratio 14.0 (10.0-20.0) Serum Glucose 118 mg/dL (74-106) Calcium Level 10.1 mg/dL (8.7-10.4) Magnesium Level 2.2 mg/dL (1.6-2.6) B-Type Natriuretic Peptide 57.53 pg/mL (0-100) Thyroid Stimulating Hormone (TSH) 2.48 uIU/mL (0.55-4.78) Other Laboratory Tests 02/22/25 15:37 Brief Hx & Hospital Course: Final diagnoses: Complete heart block, s/p dual-chamber permanent pacemaker implantation (Medtr[employer]) Moderate tricuspid valve regurgitation Acute hypoglycemia, resolved Hypertension Osteoporosis Asthma 74 year old female was admitted for complete heart block Cardiology recommended a pacemaker, it was done yesterday Today she is doing well VS are stable DC home for outpatient follow up Condition at Discharge: Stable Final Diagnosis/Problems List Successful placement of permanent pacemaker Complete heart block Discharge Disposition: Home SNF Discharge Will this Physician continue t: No Discharge Instruct/Medications Diet: Cardiac 2g Na,low cholest Activity: Light activity Follow Up/Referral: Dr. Su 1-2 weeks Medications: Same home meds Discharge Statement: "Patient was advised to return to the ER or call 911 if any headaches, dizziness, shortness of breath, chest pain, abdominal pain, bleeding, fevers, or worsening of medical condition. Patient was counseled about treatment plan, medications, possible side effects, patientverbalized understanding. All questions were answered to the best of my ability. This discharge took greater then 30 minutes in planning, reviewing documentation, counseling the patient, and discussing with other team members." ASSESSMENT ASSESSMENT Assessment Successful placement of permanent pacemaker Complete heart block Date of Service: February 23, 2025 Billing Provider: ROSE MORTENSEN MD Common Visit Codes: NOT BILLABLE ROSE MORTENSEN MD February 23, 2025 15:38
[2025-02-23 16:06] LABS: Urine Bacteria None Seen /hpf (None Seen)
[2025-02-23 16:20] LABS: Urine Blood Negative /uL (Negative); Urine Clarity Clear (Clear); Urine Color Light-Yellow (Yellow); Urine Mucus FEW (None Seen); Urine Protein, UAD Negative (Negative); Urine Specific Gravity 1.016 (1.001-1.035); Urine Squamous Epithelial Cell FEW /hpf (<5); Urine Urobilinogen Normal (Negative); Urine WBC 3 /HPF (0-5); Urine pH 5.5 (5.0-9.0)
[2025-02-23] MEDS: LORATADINE 10 MG TAB PO ONE (16:57)
[2025-02-23] MEDS: FAMOTIDINE 20 MG TAB PO SCH (16:57)
[2025-02-23] MEDS: ACETAMINOPHEN 325 MG TAB PO PRN (17:15)
[2025-02-23] MEDS ORDERED: FLUTICASONE PROP NASAL SPR 0.05 % (50MCG) 16GM EACHNOSTRI SCH (22:00)
[2025-02-24] MEDS ORDERED: LORATADINE 10 MG TAB PO SCH (10:00)
--- NOTE | 2025-02-27 08:21 | ECG ---
[facility] Test Date: 2025-02-22 Test Time: 21:22:00 Pat Name: ELSA ASIF Department: Room: 0248T B Gender: F Professional Shopper: Pardeep ROBERTS RN : 1950 Requested By: LAURIE PICHARDO Order Number: [id number] Reading MD: Measurements Intervals Walker Rate: 86 P: 65 NM: 174 QRS: -71 QRSD: 154 T: 97 QT: 458 QTc: 548 Interpretive Statements Normal sinus rhythm Possible Left atrial enlargement Left axis deviation Left ventricular hypertrophy with QRS widening and repolarization abnormality Please click the below link to view image of tracing.
== END 2025-02-23 19:24 | disposition home or self-care (01) | DRG 244 ==
LOC: EDBD 14:54 → ER 14:59 → OVERFLOW 23:46 → TELE-EAST 23:54
PROVIDERS: ADMIT Internal Medicine Geriatric Medicine; ATTEND Internal Medicine Geriatric Medicine
PROC: 0JH606Z Insertion of Pacemaker, Dual Chamber into Chest Subcutaneous Tissue and Fascia, Open Approach (ICD-10-PCS; principal; 2025-02-22)
PROC: 02H63JZ Insertion of Pacemaker Lead into Right Atrium, Percutaneous Approach (ICD-10-PCS; 2025-02-22)
PROC: B517YZZ Fluoroscopy of Left Subclavian Vein using Other Contrast (ICD-10-PCS; 2025-02-22)
PROC: 02HK3JZ Insertion of Pacemaker Lead into Right Ventricle, Percutaneous Approach (ICD-10-PCS; 2025-02-22)
DX: I44.2 Atrioventricular block, complete (principal); J45.909 Unspecified asthma, uncomplicated; M81.0 Age-related osteoporosis without current pathological fracture; I07.1 Rheumatic tricuspid insufficiency; E16.2 Hypoglycemia, unspecified; I10 Essential (primary) hypertension; Z79.899 Other long term (current) drug therapy; Z90.710 Acquired absence of both cervix and uterus; Z90.49 Acquired absence of other specified parts of digestive tract
CPT/HCPCS: 33208; 36012; 36415; 71045; 80048; 81001; 83735; 83880; 84443; 84484; 85025; 85610; 85730; 93005; 93306; 96365; 96375; 99152; 99291; G0378; J2250; J2405